=== PATIENT | female | born 1970 | race Caucasian/White ===

== ENCOUNTER 2019-06-15 17:37 | Emergency (ER) | payer MEDICAID ==
[~2019-06-15] VITALS: Ht 167.6 cm; Wt 95.0 kg
[~2019-06-15 17:37] MED LIST: CHLO25CA10 PO; FOLI1TAB16 PO; HYDR-4383 PO; MAGN400C PO; MULT-1179 PO; ONDA8TAB6 PO; PANT-47 PO; POTA10TA36 PO; POTA20TA19 PO; THI100T PO
[2019-06-15] MEDS ORDERED: ibuprofen tablet 400 MG TABLET PO ONE (19:10)
[2019-06-15 19:37] VITALS: BP 168/99
== END 2019-06-15 19:28 | disposition home or self-care (01) ==
LOC: ER 17:38
DX: S93.492A Sprain of other ligament of left ankle, initial encounter (principal); Z79.899 Other long term (current) drug therapy; Z90.49 Acquired absence of other specified parts of digestive tract; Z98.51 Tubal ligation status; X58.XXXA Exposure to other specified factors, initial encounter; Y93.89 Activity, other specified; Y92.89 Other specified places as the place of occurrence of the external cause; Y99.8 Other external cause status
CPT/HCPCS: 73610; 99283

== ENCOUNTER 2021-02-18 17:02 | Inpatient (IN) | payer MEDICAID ==
[~2021-02-18] VITALS: Ht 167.6 cm; Wt 107.3 kg
[2021-02-18 18:22] LABS: BASOPHILS % (AUTO) 0.1 % (0-1); EOSINOPHILS # (AUTO) 0.1 X10'3 (0-0.9); EOSINOPHILS % (AUTO) 0.6 % (0-6); HEMATOCRIT 39.4 % (35.0-45.0); HEMOGLOBIN 13.4 g/dl (12.0-16.0); LYMPHOCYTES # (AUTO) 3.1 X10'3 (1.1-4.8); LYMPHOCYTES % (AUTO) 20.3 % (21-51); MEAN CORPUSCULAR HEMOGLOBIN 30.6 PG (27.0-31.0); MEAN CORPUSCULAR HGB CONC 34.1 g/dL (33.0-36.5); MEAN CORPUSCULAR VOLUME 89.8 FL (78-98); MEAN PLATELET VOLUME 7.7 FL (7.4-10.4); MONOCYTES # (AUTO) 0.9 X10'3 (0-0.9); MONOCYTES % (AUTO) 6.1 % (2-12); NEUTROPHILS # (AUTO) 11.1 X10'3 (1.8-7.7); NEUTROPHILS % (AUTO) 72.9 % (42-75); PLATELET COUNT 172 X10'3 (140-440); RED BLOOD COUNT 4.38 X10'6 (4.20-5.60); RED CELL DISTRIBUTION WIDTH 13.7 % (11.5-14.5); WHITE BLOOD COUNT 15.2 X10'3 (4.5-11.0)
[2021-02-18 18:38] LABS: ALANINE AMINOTRANSFERASE 41 U/L (12-78); ALBUMIN 3.6 G/DL (3.4-5.0); ALBUMIN/GLOBULIN RATIO 0.9 (1.1-1.5); ALKALINE PHOSPHATASE 103 IU/L (46-116); ANION GAP 11 (8-16); ASPARTATE AMINO TRANSFERASE 30 U/L (10-37); BILIRUBIN,TOTAL 1.1 MG/DL (0.1-1.0); BLOOD UREA NITROGEN 9 MG/DL (7-18); BUN/CREATININE RATIO 11.1 (6.6-38.0); CHLORIDE 102 MMOL/L (99-107); CREATININE 0.81 MG/DL (0.40-0.90); GLUCOSE 98 MG/DL (70-104); MAGNESIUM 1.8 MG/DL (1.5-2.4); POTASSIUM 3.3 MMOL/L (3.5-5.1); SODIUM 141 MMOL/L (135-145); TOTAL CARBON DIOXIDE 28.3 MMOL/L (24-32); TOTAL PROTEIN 7.7 G/DL (6.4-8.2); eGFR 75 ML/MIN
--- NOTE | 2021-02-18 18:59 | NUR ---
PT IS RESTING QUIETLY ON GURNEY, C/O RT LATERAL ABD PAIN, CONSTANT SINCE WEDNESDAY, "SHARP...TENDER", NO BRUISING, ON WEDNESDAY PT HAD SYNCOPAL EPISODE WHILE PUTTING A DISH ON THE GRD, "WAVE OF BLACK CAME OVER ME I STOOD UP", PT THEN FELL FORWARD ONTO END TABLE AND THEN BACKWARDS ONTO HER BUTTOCKS, H/O CIRROHOSIS, NO ETOH X1 YEAR, HAS BEEN ON LASIX FOR SWELLING IN LEGS, NO SWELLING NOW. PT HAS APPT WITH PMD ON 02/27 FOR FOLLOW UP. WAITING TO BE EVALUATED BY PROVIDER
[2021-02-18] MEDS ORDERED: potassium Cl 20 mEq SR tablet PO ONE (19:10)
[2021-02-18] MEDS ORDERED: iohexol 300mg/ml 100ml inj. ONE (19:24)
[2021-02-18] MEDS ORDERED: morphine 4 MG/ML inj SYRINge IV ONE (20:35)
[2021-02-18] MEDS ORDERED: ondansetron/PF 4mg/2ml inj IV ONE (20:35)
[2021-02-18] MEDS ORDERED: piperacillin/tazo 3.375gm/50ml 50 ML IV ONE (20:35)
[2021-02-18] MEDS ORDERED: magnesium 2GM in 50ml NS 50 ML IV PRN (21:15)
[2021-02-18] MEDS ORDERED: potassium Cl 40MEQ/1/2NS 520ml 520 ML IV PRN ×2 (21:15)
[2021-02-18] MEDS ORDERED: magnesium 4gm in 100ml NS 100 ML IV PRN (21:15)
[2021-02-18] MEDS ORDERED: acetaminophen 325mg tablet PO PRN (21:15)
[2021-02-18] MEDS ORDERED: magnesium Cl slow-release 64mg tablet PO PRN (21:15)
[2021-02-18] MEDS ORDERED: potassium Cl 20 mEq SR tablet PO PRN ×2 (21:15)
[2021-02-18] MEDS ORDERED: ondansetron/PF 4mg/2ml inj IV PRN (21:15)
--- NOTE | 2021-02-18 21:31 | NUR ---
PT IS RESTING QUIETLY ON GURNEY, HAS BEEN EVALUATED BY HOSPITALIST, WAITING FOR BED ASSIGNMENT
[2021-02-18] MEDS ORDERED: FURO-149 PO (21:37)
[2021-02-18] MEDS ORDERED: LISI20TA28 PO (21:37)
[2021-02-18] MEDS: normal saline 1000ml 1,000 ML IV SCH (21:57)
[2021-02-19] VITALS (19 sets, daily range): BP systolic 113–146; BP diastolic 57–85
[2021-02-19] MEDS: morphine 2 MG/ML inj. syringe IV PRN ×2 (05:25→12:15)
[2021-02-19] MEDS: piperacillin/tazo 3.375gm/50ml 50 ML IV SCH ×3 (05:26→21:59)
[2021-02-19 05:35] LABS: BASOPHILS % (AUTO) 0.4 % (0-1); EOSINOPHILS # (AUTO) 0.2 X10'3 (0-0.9); EOSINOPHILS % (AUTO) 1.8 % (0-6); HEMATOCRIT 37.7 % (35.0-45.0); HEMOGLOBIN 12.7 g/dl (12.0-16.0); LYMPHOCYTES # (AUTO) 1.2 X10'3 (1.1-4.8); LYMPHOCYTES % (AUTO) 12.6 % (21-51); MEAN CORPUSCULAR HEMOGLOBIN 30.6 PG (27.0-31.0); MEAN CORPUSCULAR HGB CONC 33.6 g/dL (33.0-36.5); MEAN CORPUSCULAR VOLUME 91.1 FL (78-98); MEAN PLATELET VOLUME 7.7 FL (7.4-10.4); MONOCYTES # (AUTO) 0.5 X10'3 (0-0.9); MONOCYTES % (AUTO) 4.8 % (2-12); NEUTROPHILS # (AUTO) 7.6 X10'3 (1.8-7.7); NEUTROPHILS % (AUTO) 80.4 % (42-75); PLATELET COUNT 159 X10'3 (140-440); RED BLOOD COUNT 4.13 X10'6 (4.20-5.60); WHITE BLOOD COUNT 9.4 X10'3 (4.5-11.0)
[2021-02-19 05:40] LABS: ALANINE AMINOTRANSFERASE 163 U/L (12-78); ALBUMIN 2.9 G/DL (3.4-5.0); ALBUMIN/GLOBULIN RATIO 0.8 (1.1-1.5); ALKALINE PHOSPHATASE 145 IU/L (46-116); ANION GAP 9 (8-16); ASPARTATE AMINO TRANSFERASE 162 U/L (10-37); BILIRUBIN,TOTAL 2.8 MG/DL (0.1-1.0); BLOOD UREA NITROGEN 9 MG/DL (7-18); BUN/CREATININE RATIO 11.7 (6.6-38.0); CALCIUM 8.2 MG/DL (8.5-10.1); CHLORIDE 106 MMOL/L (99-107); CREATININE 0.77 MG/DL (0.40-0.90); GLUCOSE 109 MG/DL (70-104); POTASSIUM 4.2 MMOL/L (3.5-5.1); SODIUM 142 MMOL/L (135-145); TOTAL CARBON DIOXIDE 27.2 MMOL/L (24-32); TOTAL PROTEIN 6.7 G/DL (6.4-8.2); eGFR 79 ML/MIN
[2021-02-19 05:43] LABS: MAGNESIUM 1.8 MG/DL (1.5-2.4)
--- NOTE | 2021-02-19 06:15 | NUR ---
Patient in room ED 11. I have received report from Alena AYALA and had the opportunity to ask questions and assume patient care.
--- NOTE | 2021-02-19 06:38 | NUR ---
Patient arrived to floor made familiar with room, vitals taken at this time. Patient started back on fluid upon arrival and call light placed in reach at this time.
[2021-02-19] MEDS ORDERED: BUPIVAcaine/PF 2.5 mg/ml (0.25%) 30ml vial ONE (07:14)
[2021-02-19] MEDS: normal saline 1000ml 1,000 ML IV SCH ×2 (07:15→17:32)
[2021-02-19] MEDS ORDERED: ringers solution, lacted 1,000 ML IV SCH ×2 (07:45→09:10)
[2021-02-19] MEDS ORDERED: famotidine/PF 10 mg/ml inj IV ONE ×2 (07:45→08:58)
[2021-02-19] MEDS: K and/or MAG REPLACEMENT MC SCH ×2 (08:00→20:00)
[2021-02-19 08:34] LABS: PARTIAL THROMBOPLASTIN TIME 28 SECONDS (22-32)
[2021-02-19] MEDS ORDERED: sevoflurane 250ml liquid IH ONE (08:46)
[2021-02-19] MEDS ORDERED: midazolam 1 mg/ML 2ml injection ONE (08:47)
[2021-02-19] MEDS ORDERED: fentaNYL /PF 50mcg/ml 5ml ampule ONE (08:52)
[2021-02-19] MEDS ORDERED: LIDOcaine 2% 5ml jelly ONE (08:54)
[2021-02-19] MEDS ORDERED: rocuronium 10mg/ml inj IV ONE (08:58)
[2021-02-19] MEDS ORDERED: propofol inj 20 ML IV ONE (08:58)
[2021-02-19] MEDS ORDERED: LIDOcaine 2% (20mg/ml) 5ml vial ONE (08:58)
[2021-02-19] MEDS ORDERED: dexamethasone sod phosphate 4mg/ml inj. ONE (08:59)
[2021-02-19] MEDS ORDERED: ondansetron/PF 4mg/2ml inj ONE (08:59)
[2021-02-19] MEDS ORDERED: acetaminophen 1,000mg/100ml IV 100 ML IV PRN (09:10)
[2021-02-19] MEDS ORDERED: labetalol 20mg/4ml (5mg/ml) syringe IV PRN (09:10)
[2021-02-19] MEDS ORDERED: hydrALAZINE 20mg/ml inj. IV PRN (09:10)
[2021-02-19] MEDS ORDERED: morphine 2 MG/ML inj. syringe IV PRN (09:10)
[2021-02-19] MEDS ORDERED: proCHLORperazine 10 MG/2 ml inj IV PRN (09:10)
[2021-02-19] MEDS ORDERED: ondansetron/PF 4mg/2ml inj IV PRN (09:10)
[2021-02-19] MEDS ORDERED: meperidine/PF 25mg/ml syringe IV PRN ×3 (09:10)
[2021-02-19] MEDS ORDERED: morphine 4 MG/ML inj SYRINge IV PRN (09:10)
[2021-02-19] MEDS ORDERED: glycopyrrolate 0.2mg/ml inj ONE (10:16)
[2021-02-19] MEDS ORDERED: ceFOXitin 1000 MG inj ONE ×2 (10:16)
[2021-02-19] MEDS ORDERED: neostigmine methylsulfate 1 MG/ML 10ml vial ONE (10:16)
--- NOTE | 2021-02-19 10:40 | NUR ---
Received from OR via BED , accompanied by Anesthesiologist and report given by Anesthesiolgist. PATIENT WAKING UP, NO S/S OF PAIN, V/S WNL, SCD ON, 20G TO RUE, LAP SURGICAL SITES TO ABDOMEN CDI.
--- NOTE | 2021-02-19 11:50 | NUR ---
PATIENT A&OX4, DENIES PAIN, V/S WNL, SCD ON, 20G TO RUE, LAP SURGICAL SITES TO ABDOMEN CDI. PATIENT TAKEN TO SURGICAL WITH ALL BELONGINGS AND HOOKED UP TO MONITORS IN ROOM AND REPORT GIVEN TO RN WHO HAS TAKEN OVER PATIENT CARE.
[2021-02-19] MEDS ORDERED: HYDROcodone/acetaminophen 5mg/325mg tablet PO PRN (15:15)
[2021-02-19] MEDS: HYDROcodone/acetaminophen 10/325mg tab PO PRN ×2 (15:24→19:59)
[2021-02-19] MEDS ORDERED: piperacillin/tazo 3.375gm/50ml 50 ML IV SCH (16:00)
--- NOTE | 2021-02-19 18:22 | NUR ---
Problems reprioritized. Patient report given, questions answered & plan of care reviewed with Michi AYALA.
--- NOTE | 2021-02-19 18:56 | NUR ---
Patient in room [facility]. I have received report from Tony AYALA and had the opportunity to ask questions and assume patient care.
[2021-02-19] MEDS: lactobacillus rhamnosus 10,000 MMU CELLS/CAPSULE PO SCH (19:50)
[2021-02-20 00:01] VITALS: BP 106/65
[2021-02-20] MEDS: normal saline 1000ml 1,000 ML IV SCH (03:15)
[2021-02-20 04:36] VITALS: BP 94/56
[2021-02-20] MEDS: piperacillin/tazo 3.375gm/50ml 50 ML IV SCH (05:52)
--- NOTE | 2021-02-20 05:53 | NUR ---
wrong patient Addendum: 02/20/21 at 0553 by Michi Garland RN Amended: Links added.
[2021-02-20 06:06] LABS: BASOPHILS % (AUTO) 0 % (0-1); EOSINOPHILS % (AUTO) 0 % (0-6); HEMATOCRIT 34.5 % (35.0-45.0); HEMOGLOBIN 11.8 g/dl (12.0-16.0); LYMPHOCYTES # (AUTO) 0.6 X10'3 (1.1-4.8); LYMPHOCYTES % (AUTO) 6.9 % (21-51); MEAN CORPUSCULAR HGB CONC 34.1 g/dL (33.0-36.5); MEAN PLATELET VOLUME 7.7 FL (7.4-10.4); MONOCYTES # (AUTO) 0.7 X10'3 (0-0.9); MONOCYTES % (AUTO) 7.2 % (2-12); NEUTROPHILS % (AUTO) 85.9 % (42-75); PLATELET COUNT 148 X10'3 (140-440); RED BLOOD COUNT 3.79 X10'6 (4.20-5.60); RED CELL DISTRIBUTION WIDTH 13.7 % (11.5-14.5); WHITE BLOOD COUNT 9.3 X10'3 (4.5-11.0)
[2021-02-20 06:23] LABS: ALANINE AMINOTRANSFERASE 104 U/L (12-78); ALBUMIN 2.7 G/DL (3.4-5.0); ALBUMIN/GLOBULIN RATIO 0.7 (1.1-1.5); ALKALINE PHOSPHATASE 117 IU/L (46-116); ANION GAP 5 (8-16); ASPARTATE AMINO TRANSFERASE 50 U/L (10-37); BILIRUBIN,TOTAL 1.1 MG/DL (0.1-1.0); BLOOD UREA NITROGEN 9 MG/DL (7-18); BUN/CREATININE RATIO 11.1 (6.6-38.0); CALCIUM 8.7 MG/DL (8.5-10.1); CHLORIDE 107 MMOL/L (99-107); CREATININE 0.81 MG/DL (0.40-0.90); GLUCOSE 138 MG/DL (70-104); MAGNESIUM 1.7 MG/DL (1.5-2.4); POTASSIUM 4.6 MMOL/L (3.5-5.1); SODIUM 141 MMOL/L (135-145); TOTAL CARBON DIOXIDE 28.7 MMOL/L (24-32); TOTAL PROTEIN 6.5 G/DL (6.4-8.2); eGFR 75 ML/MIN
--- NOTE | 2021-02-20 06:27 | NUR ---
Problems reprioritized. Patient report given, questions answered & plan of care reviewed with LUCY Spear.
--- NOTE | 2021-02-20 06:54 | NUR ---
Patient in room [facility]. I have received report from LUCY Gray, and had the opportunity to ask questions and assume patient care.
[2021-02-20] MEDS: lactobacillus rhamnosus 10,000 MMU CELLS/CAPSULE PO SCH (07:30)
[2021-02-20] MEDS: HYDROcodone/acetaminophen 10/325mg tab PO PRN (07:34)
[2021-02-20 07:45] VITALS: BP 110/59
[2021-02-20 08:00] VITALS: BP 110/59
[2021-02-20] MEDS: K and/or MAG REPLACEMENT MC SCH (08:00)
--- NOTE | 2021-02-20 09:23 | NUR ---
PAGER ID: [phone] MESSAGE: [phone] Ev Vazquez: Dr. Moreno cleared patient for DC. thanks, pavan [phone]
[2021-02-20 11:00] VITALS: BP 99/55
[2021-02-20] MEDS ORDERED: HYDR-3965 PO (11:23)
--- NOTE | 2021-02-20 12:30 | NUR ---
Student documentation: I have reviewed and agree with all interventions, assessments performed and documented by SN Елена. Student Medication Administration: For this medication-pass time frame, all medication were reviewed, dispensed, administered and documented per hospital policy by SN Елена.
--- NOTE | 2021-02-20 12:45 | NUR ---
patient stable and appropriate for discharge home. IV removed, all belongings taken from room. new prescription transmitted to preferred pharmacy. All discharge education and instructions given and reviewed with patient, all questions answered.
--- NOTE | 2021-02-21 11:26 | NUR ---
CASE MANAGEMENT DISCHARGE FOLLOW UP: T/c to pt, no answer, left message requesting callback. Addendum: 02/21/21 at 1134 by Anny Valdez RN [id number] Received return call from pt. Reports that she is doing well, starting to eat more solids and is able to keep it down, states pain level is tolerable with pain medication which she states she is spacing out; denies CP, SOB/dyspnea, bruising/bleeding, swelling, fever/chills. She states that she is just taking it easy and her boss gave her a week off work, so she is going to "be a couch potato." Advised pt to make sure that she gets up and moves around often to prevent complications s/p procedure, she states that she already is. Verbalizes understanding of s/sx requiring further evaluation/emergent assistance. Verbalizes understanding of new and current medications. Verbalizes compliance with MD discharge instructions. Verbalizes understanding of the importance in making/keeping follow-up appointments, set up follow-up appointment with surgeon. States no further questions/concerns at this time.
== END 2021-02-20 12:33 | disposition home or self-care (01) | DRG 233 ==
LOC: ER 17:03 → ED HOLD 21:13 → SUR 3N 02-19 06:15
PROVIDERS: ADMIT Family Medicine; ATTEND Family Medicine
PROC: BW211ZZ Computerized Tomography (CT Scan) of Abdomen and Pelvis using Low Osmolar Contrast (ICD-10-PCS; 2021-02-18)
PROC: 0DTJ4ZZ Resection of Appendix, Percutaneous Endoscopic Approach (ICD-10-PCS; principal; 2021-02-19 08:46)
DX: K35.30 Acute appendicitis with localized peritonitis, without perforation or gangrene (principal); K76.6 Portal hypertension; K74.60 Unspecified cirrhosis of liver; K21.9 Gastro-esophageal reflux disease without esophagitis; R55 Syncope and collapse; Z90.49 Acquired absence of other specified parts of digestive tract; Z98.51 Tubal ligation status; R74.8 Abnormal levels of other serum enzymes; Z79.899 Other long term (current) drug therapy; Z20.822 Contact with and (suspected) exposure to COVID-19; R03.0 Elevated blood-pressure reading, without diagnosis of hypertension
CPT/HCPCS: 36415; 71045; 74177; 80053; 82948; 83735; 84484; 85025; 85610; 85730; 87081; 87426; 93005; 99285; A4215; A4314; A4618; A7000; G0378; J0694; J1100; J2001; J2250; J2270; J2405; J2543; J2704; J2710; J3010; J3490; J7030; J7120; Q9967